=== PATIENT | female | born 1990 | race Caucasian/White ===

== ENCOUNTER 2018-03-24 15:24 | Emergency (ER) | payer MEDICAID, OTHER ==
[~2018-03-24] VITALS: Ht 165.1 cm; Wt 93.2 kg
[~2018-03-24 15:24] MED LIST: QUET25TA PO
[2018-03-24] MEDS ORDERED: SODIUM CHLORIDE 0.9% 1,000 ML IV ONE (16:32)
[2018-03-24] MEDS ORDERED: DiphenhydrAMINE HCL 50 MG/ML VIAL IVP ONE (16:45)
[2018-03-24 16:58] LABS: BASOPHILS % (AUTO) 0.5 % (0.0-2.0); EOSINOPHILS % (AUTO) 0.5 % (1.0-6.0); HEMATOCRIT 38.1 % (36-46); LYMPHOCYTES # (AUTO) 2.4 K/uL (1.0-4.8); LYMPHOCYTES % (AUTO) 25.3 % (22.0-44.0); MEAN CORPUSCULAR HEMOGLOBIN 30.3 pg (26.0-34.0); MEAN CORPUSCULAR VOLUME 89 fL (80-100); MONOCYTES # (AUTO) 0.4 K/uL (0.1-1.0); MONOCYTES % (AUTO) 3.8 % (2.0-9.0); NEUTROPHILS # (AUTO) 6.7 K/uL (1.8-7.7); NEUTROPHILS % (AUTO) 69.9 % (40.0-70.0); PLATELET COUNT (AUTO) 247 K/uL (150-450); RED BLOOD CELL COUNT(AUTO) 4.28 MIL/uL (4.00-5.20); RED CELL DISTRIBUTION WIDTH 13.8 % (11.5-14.5)
[2018-03-24 17:05] LABS: ANION GAP 4 mmol/L (8-16); CALCIUM, TOTAL 8.5 mg/dL (8.8-10.5); CARBON DIOXIDE 31 mmol/L (22-29); CHLORIDE 104 mmol/L (98-107); CREATININE 0.88 mg/dL (0.60-1.30); GLOMERULAR FILTR. RATE CALC > 60 mL/min (>60); GLUCOSE,RANDOM 78 mg/dL (70-110); POTASSIUM 3.5 mmol/L (3.5-5.1); SODIUM SERUM 139 mmol/L (136-145); UREA NITROGEN, BLOOD 15 mg/dL (7-18)
[2018-03-24 17:11] LABS: ALANINE AMINOTRANSFERASE 24 U/L (12-78); ALBUMIN 3.6 g/dL (3.4-5.0); ALKALINE PHOSPHATASE 68 U/L (46-116); ASPARTATE AMINOTRANSFERASE 15 U/L (15-37); BILIRUBIN,TOTAL 0.3 mg/dL (0.1-1.0); TOTAL PROTEIN, SERUM 7.3 g/dL (6.4-8.2)
[2018-03-24] MEDS ORDERED: METOCLOPRAMIDE HCL 5 MG/ML 2 ML VIAL IVP ONE (17:45)
[2018-03-24 18:00] LABS: AMPHET/METH SCREEN,URINE POSITIVE (NEGATIVE); BARBITURATE SCREEN, URINE NEGATIVE (NEGATIVE); BENZODIAZEPINES SCREEN,URINE NEGATIVE (NEGATIVE); CANNABINOID SCREEN,URINE NEGATIVE (NEGATIVE); COCAINE SCREEN,URINE NEGATIVE (NEGATIVE); METHADONE SCREEN, URINE NEGATIVE (NEGATIVE); OPIATE SCREEN,URINE NEGATIVE (NEGATIVE)
[2018-03-24 18:11] LABS: PHENCYCLIDINE SCREEN,URINE NEGATIVE (NEGATIVE)
[2018-03-24 20:59] VITALS: BP 126/78
== END 2018-03-24 21:03 | disposition home or self-care (01) ==
LOC: EMS 15:26
DX: G43.909 Migraine, unspecified, not intractable, without status migrainosus (principal); F15.10 Other stimulant abuse, uncomplicated; F19.90 Other psychoactive substance use, unspecified, uncomplicated; F17.210 Nicotine dependence, cigarettes, uncomplicated; Z88.8 Allergy status to other drugs, medicaments and biological substances
CPT/HCPCS: 36415; 70450; 80053; 80307; 84703; 85025; 96374; 99285; 99406; J1200; J7030

== ENCOUNTER 2018-04-03 14:46 | Emergency (ER) | payer OTHER ==
[~2018-04-03] VITALS: Ht 162.6 cm; Wt 95.5 kg
[2018-04-03] MEDS ORDERED: ACETAMINOPHEN 500 MG TABLET PO ONE (15:45)
[2018-04-03] MEDS ORDERED: PERTUSS(ACELL),DIPH,TET VAC/PF 0.5 ML VIAL IM ONE (16:30)
[2018-04-03] MEDS ORDERED: BACITRACIN 0.9 GM PACKET OINTMENT TP ONE (17:30)
[2018-04-03 18:04] VITALS: BP 117/76
== END 2018-04-03 18:06 | disposition home or self-care (01) ==
LOC: EMS 14:47
DX: S91.111A Laceration without foreign body of right great toe without damage to nail, initial encounter (principal); F31.9 Bipolar disorder, unspecified; F15.10 Other stimulant abuse, uncomplicated; Z85.028 Personal history of other malignant neoplasm of stomach; Z88.8 Allergy status to other drugs, medicaments and biological substances
CPT/HCPCS: 90471; 90715; 99284

== ENCOUNTER 2018-09-20 21:35 | Emergency (ER) | payer OTHER ==
[~2018-09-20] VITALS: Ht 165.1 cm; Wt 77.3 kg
[2018-09-20 21:40] VITALS: BP 108/82
[2018-09-20] MEDS ORDERED: QUET200T PO (21:52)
[2018-09-20] MEDS ORDERED: METHOCARBAMOL 750 MG TABLET PO ONE (23:00)
[2018-09-20] MEDS ORDERED: IBUPROFEN 600 MG TABLET PO ONE (23:00)
== END 2018-09-20 23:34 | disposition home or self-care (01) ==
LOC: EMS 21:36
DX: S30.0XXA Contusion of lower back and pelvis, initial encounter (principal); F31.9 Bipolar disorder, unspecified; F12.90 Cannabis use, unspecified, uncomplicated; F15.90 Other stimulant use, unspecified, uncomplicated; Z87.891 Personal history of nicotine dependence; Z88.8 Allergy status to other drugs, medicaments and biological substances; Z79.899 Other long term (current) drug therapy; V03.90XA Pedestrian on foot injured in collision with car, pick-up truck or van, unspecified whether traffic or nontraffic accident, initial encounter; Y93.89 Activity, other specified; Y92.488 Other paved roadways as the place of occurrence of the external cause; Y99.8 Other external cause status